=== PATIENT | female | born 1970 | race Caucasian/White ===

== ENCOUNTER 2025-08-11 13:50 | Outpatient (REF) | payer MEDICARE, MEDICAID, SELFPAY ==
[2025-08-11 15:49] LABS: MANUAL DIFF FLAG NO
[2025-08-11 16:28] LABS: Hematocrit 44.9 % (37.0-47.0); Hemoglobin 15.2 g/dl (12.0-16.0); Imm Gran Abs Auto 0.03 X10*3/uL (0.00-0.03); Imm Gran Pct Auto 0.4 % (0.0-0.4); Lymphocytes Absolute Auto 2.3 X10*3/uL (1.2-4.9); Mean Corpuscular HGB Conc 33.9 g/dl (31.0-35.0); Mean Corpuscular Hemoglobin 30.8 pg (27.0-33.0); Mean Corpuscular Volume 90.9 fL (80.0-98.0); NRBC Abs Auto 0.000 X10*3/uL (0.0-0.012); NRBC Pct Auto 0.0 /100WBC (0.0-0.2); Platelet Count 232 X10*3/uL (160-400); Red Blood Count 4.94 X10*6/uL (4.20-5.50); White Blood Count 8.2 X10*3/uL (4.8-10.8)
[2025-08-11 18:06] LABS: Alanine Aminotransferase 63 U/L (0-31); Albumin Level 4.9 g/dL (3.5-5.0); Alkaline Phosphatase 78 U/L (39-117); Anion Gap 12 (12-20); Aspartate Amino Transferase 47 U/L (5-31); Blood Urea Nitrogen 17 mg/dL (9-16); Calcium 9.9 mg/dL (8.4-10.2); Carbon Dioxide 27 mmol/L (22-29); Chloride 107 mmol/L (96-108); Cholesterol 305 mg/dL (<200); Estimated Glomerular Filt Rate 55; HDL Cholesterol 69 mg/dL (>40); Potassium 4.7 mmol/L (3.3-5.1); Sodium 141 mmol/L (135-145); Total Protein 7.5 g/dL (6.5-8.0); Triglycerides 118 mg/dL (<150)
[2025-08-11 18:14] LABS: Vitamin B12 438 pg/mL (200-900)
== END 2025-08-11 13:51 | disposition home or self-care (01) ==
LOC: HO.LAB 13:50
PROVIDERS: PCP Internal Medicine; Visit Provider Internal Medicine
DX: Z00.00 Encounter for general adult medical examination without abnormal findings (principal); Z01.419 Encounter for gynecological examination (general) (routine) without abnormal findings; G61.81 Chronic inflammatory demyelinating polyneuritis; F41.1 Generalized anxiety disorder; Z13.6 Encounter for screening for cardiovascular disorders
CPT/HCPCS: 36415; 80053; 80061; 82306; 82607; 84443; 85025

== ENCOUNTER 2025-08-11 13:50 | Outpatient (AMB) | payer MEDICARE, MEDICAID, SELFPAY ==
--- NOTE | 2025-08-11 13:51 | MHC.PC.OV ---
Vital Signs 08/11/25 13:55 Height 5 ft 6 in Weight 149 lb 4 oz BMI 24.1 BP 120/84 Blood Pressure Location Lt brachial Position Sitting Respiration 16 Pulse 91 Pulse Source Pulse Oximeter Temp 97.1 F Temp Source Temporal Artery Scan Pulse Oximetry (%) 97 Oxygen Delivery Method Room Air Intake Visit Reasons: Annual PE - see comments Wire Bender Required: No Accompanied by: Self / Same As Patient Allergies No Known Allergies Allergy (Verified 08/11/25 13:58) Medication List - Last Reconciled 08/11/25 by Yuridia Ulrich MD bupropion HCl 75 mg PO DAILY clonazepam 2 - 3 mg PO DAILY PRN cyclobenzaprine 5 mg PO BEDTIME PRN escitalopram oxalate 5 mg PO QAM PRN naltrexone mg PO DAILY ubrogepant (Ubrelvy) mg PO PRN Tobacco use date assessed: 08/11/25 Dental Screening Dental Screen Date: 08/11/25 Did you have a dental visit in the last 12 months?: No Did you have a dental problem in the last 6 months where you did not have access to dental care?: No Was dental information given to patient?: Patient has dentist [facility] Medical History (Updated 08/11/25 @ 15:06 by uYridia Ulrich MD) Routine gynecological examination Routine medical exam Hydrosalpinx CIDP (chronic inflammatory demyelinating polyneuropathy) Generalized anxiety disorder Surgical History (Updated 08/11/25 @ 13:07 by Yuridia Ulrich MD) H/O shoulder surgery Social History Housing: Apartment Patient Tobacco Use Status: Former Tobacco user Years Smoked: 15 years e-Cigarette/Vaping Use: Never Used service: No Current occupational status: disabled Questionnaire PHQ-9 Over the last 2 weeks, how often have you been bothered by any of the following problems? 1. Little interest or pleasure in doing things: not at all 2. Feeling down, depressed, or hopeless: not at all 3. Trouble falling or staying asleep, or sleeping too much: not at all 4. Feeling tired or having little energy: not at all 5. Poor appetite or overeating: not at all 6. Feeling bad about yourself - or that you are a failure or have let yourself or your family down: not at all 7. Trouble concentrating on things, such as reading the newspaper or watching television: not at all 8. Moving or speaking so slowly that other people could have noticed. Or the opposite - being so fidgety or restless that you have been moving around a lot more than usual: not at all 9. Thoughts that you would be better off or of hurting yourself in some way: not at all Total score: 0 Depression Screening Interpretation: Negative Depression Screening Done: Yes 11901 - PHQ-9 Billing: Yes Source: Developed by Drs. Babar Tai, Stephanie Avelar, Maulik Ordaz and colleagues, with an educational adelaide from [employer]. Thrive Questionnaire Date Thrive assessed: 08/11/25 I am a: Patient What is your living situation today?: I have a steady place to live Within the past 12 months, did the food you bought not last and you didn't have the money to get more?: Never true Within the past 12 months, did you worry whether your food would run out before you got money to buy more?: Never true Do you have trouble paying for medicines?: No Do you have trouble getting transportation to medical appointments?: No Do you have trouble paying your heating and electricity bill?: No Do you have trouble taking care of your child, family member or friend?: No Do you have trouble with day-to-day activities such as bathing, preparing meals, shopping, managing finances, etc.?: No Are you currently unemployed and looking for a job?: No Are you interested in more education?: No Please select the resources that you would like help with: None THRIVE Score: 0 AUDIT C Alcohol Use Questionnaire (AUDIT-C) 1. How often do you have a drink containing alcohol?: Never 3. How often do you have six or more drinks on one occasion?: Never Total Score: 0 KEILA-7 AMB Questionnaire KEILA-7 Date KEILA - 7 assessed: 08/11/25 Feeling nervous, anxious, or on edge: 0 = Not at all Not being able to stop or control worryin = Not at all Worrying too much about different things: 0 = Not at all Trouble relaxin = Not at all Being so restless that it is hard to sit still: 0 = Not at all Becoming easily annoyed or irritable: 0 = Not at all Feeling afraid as if something awful might happen: 0 = Not at all Total KEILA-7 score (0-4 normal; 5-9 mild; 10-14 moderate; 15-21 severe): 0 Source: Developed by Drs. Babar Tai, Stephanie Avelar, Maulik Ordaz and colleagues, with an educational adelaide from [employer]. Physical exam (Primary Care) Vital Signs: Last Vital Signs Temp 97.1 F 08/11/25 13:55 Pulse 91 08/11/25 13:55 Resp 16 08/11/25 13:55 BP 120/84 08/11/25 13:55 Pulse Ox 97 08/11/25 13:55 Oxygen Delivery Method Room Air 08/11/25 13:55 BMI result Body Mass Index 24.1 Tobacco/Smoking Status: Tobacco use Status Tobacco use date assessed 08/11/25 08/11/25 13:54 Patient Tobacco Use Status Former Tobacco user 08/11/25 14:06 e-Cigarette/Vaping Use Never Used 08/11/25 14:06 PHQ-9: PHQ-9 Score PHQ-9: Total score 0 08/11/25 14:09 Depression Screening Interpretation: Negative Thrive Assessment: Date of Thrive Assessment Date Thrive assessed 08/11/25 08/11/25 14:09 Coding Additional Codes PHQ-9 - 89470 - PHQ-9 Billing: Yes ([id number]) Assessment & Plan Assessment & Plan Orders: Orders Vitamin D 25-OH Total Today G61.81 - Chronic inflammatory demyelinating polyneuritis, Z00.00 - Encounter for general adult medical examination without abnormal findings Vitamin B12 Today G61.81 - Chronic inflammatory demyelinating polyneuritis, Z00.00 - Encounter for general adult medical examination without abnormal findings Lipid Panel Today G61.81 - Chronic inflammatory demyelinating polyneuritis, Z00.00 - Encounter for general adult medical examination without abnormal findings Comprehensive Met. Panel Today G61.81 - Chronic inflammatory demyelinating polyneuritis, Z00.00 - Encounter for general adult medical examination without abnormal findings Complete Blood Count Auto Diff Today G61.81 - Chronic inflammatory demyelinating polyneuritis, Z00.00 - Encounter for general adult medical examination without abnormal findings TSH reflex Free T4 Today G61.81 - Chronic inflammatory demyelinating polyneuritis, Z00.00 - Encounter for general adult medical examination without abnormal findings Referrals APARTMENT PROPERTY MANAGER Referral Z01.419 - Encounter for gynecological examination (general) (routine) without abnormal findings
[2025-08-11 13:55] VITALS: BP 120/84; PULSE 91; RESP 16; TEMP 36.2; O2SAT 97; BMI 24.1
--- NOTE | 2025-08-11 15:15 | A.OFFVIS_ITS ---
Intake Vital Signs 08/11/25 13:55 Height 5 ft 6 in Weight 149 lb 4 oz BMI 24.1 BP 120/84 Blood Pressure Location Lt brachial Position Sitting Respiration 16 Pulse 91 Pulse Source Pulse Oximeter Temp 97.1 F Temp Source Temporal Artery Scan Pulse Oximetry (%) 97 Oxygen Delivery Method Room Air Intake Visit Reasons: Annual PE - see comments, medicare wellness visit Allergies No Known Allergies Allergy (Verified 08/11/25 13:58) Medication List - Last Reconciled 08/11/25 by Yuridia Ulrich MD bupropion HCl 75 mg PO DAILY clonazepam 2 - 3 mg PO DAILY PRN cyclobenzaprine 5 mg PO BEDTIME PRN escitalopram oxalate 5 mg PO QAM PRN naltrexone mg PO DAILY ubrogepant (Ubrelvy) mg PO PRN Fall Risk Assessment Fall risk assessment: No Falls in past year Date Fall Risk Assessed: 08/11/25 HPI HPI Comments History of Present Illness Details The patient is a 54 year old female presenting to [facility] and for a medicare wellness visit. Health Risk Assessment completed. No cognitive deficits, no opioid use. Migraine: The patient reports a history of migraines, and in September of this year, she experienced massive headaches with pain behind her eye that radiated to the back of her head. These headaches were disabling, with one episode lasting for a week, prompting her to see a headache specialist at [facility] who diagnosed them as migraines. She was initially treated with Imitrex, which was effective, but later she experienced breakthrough headaches. She now uses Ubrelvy as needed, which she reports is effective for her moderate headaches. Anxiety: The patient has a history of anxiety and reports taking escitalopram once during the COVID-19 pandemic, which was effective. She has a prescription for it but does not take it daily. She also uses Klonopin sparingly. Depression: The patient has been taking Wellbutrin for decades for depression. She is currently tapering the medication and has reduced the dose from 100 mg to 75 mg. A previous attempt to discontinue the 100 mg dose, even when done slowly, resulted in withdrawal effects. Right shoulder pain: The patient is currently in physical therapy at [facility] in [place] for an issue with her right shoulder. Polyneuropathy: The patient has a history of polyneuropathy, for which she has seen Dr. Rivera, a neurologist, for years. She previously received IVIG infusions once a week but stopped, and she has not had nerve pain since discontinuing the treatment. She has been taking low-dose naltrexone (LDN) and reports it has helped her symptoms, including the resolution of brain fog. Health Maintenance: She reports being overdue for a mammogram, which she declines to have at this time. Pt will schedule appointment to see gynecology. Will also obtain records to verify date of last colonoscopy. [facility] Medical History (Updated 08/12/25 @ 13:04 by Yuridia Ulrich MD) Mixed hyperlipidemia Transaminitis Routine gynecological examination Routine medical exam Hydrosalpinx CIDP (chronic inflammatory demyelinating polyneuropathy) Generalized anxiety disorder Surgical History (Updated 08/11/25 @ 13:07 by Yuridia Ulrich MD) H/O shoulder surgery Questionnaire Medicare Wellness Checkup What gender do you identify with?: female During the past 4 weeks, how much have you been bothered by emotional problems such as feeling anxious, depressed, irritable, sad or downhearted, and blue?: not at all During the past 4 weeks, has your physical & emotional health limited your social activities with family, friends, neighbors, or groups?: not at all During the past 4 weeks, how much bodily pain have you generally had?: moderate pain During the past 4 weeks, was someone available to help you if you needed & wanted help?: yes, as much as I wanted During the past 4 weeks, what was the hardest physical activity you could do for at least 2 minutes?: light Can you get to places out of walking distance without help? (For eg., can you travel alone on buses, taxis or drive your car?): Yes Can you go shopping for groceries or clothes without someone's help?: Yes Can you prepare your own meals?: Yes Can you do your housework without help?: Yes Because of any health problems, do you need the help of another person with your personal care needs such as eating, bathing, dressing or getting around the house?: No Can you handle your own money without help?: Yes During the past 4 weeks, how would you rate your health in general?: excellent During the past 4 weeks how have things been going for you?: very well; could hardly better Are you having difficulties driving your car?: yes, often Do you always fasten your seat belt when you are in a car?: yes, usually During past 4 weeks, have you been bothered by the following: never: Falling or dizzy when standing up, Trouble eating well?, Teeth or denture problems? and Problems using the telephone? and seldom: Tiredness or fatigue? Have you fallen 2 or more times in the past year?: No Are you afraid of falling?: No Are you a smoker?: no During the past 4 weeks, how many drinks of wine, beer, or other alcoholic beverages did you have?: no alcohol at all Do you exercise for about 20 minutes 3 or more times a week?: yes, some of the time Have you been given information to help with the following?: no: Hazards in your house that might hurt you? and no: Keeping track of your medications? How often do you have trouble taking medicines the way you have been told to take them?: I always take medicine as prescribed How confident are you that you can control & manage most of your health problems?: very confident What is your race?: White Review of Systems Narrative Review of Systems - Constitutional: Reports fatigue on some days. -Neurological: per hpi - Musculoskeletal: per hpi - Psychiatric: Reports history of anxiety and depression. Physical Exam Exam Exam: Physical Exam - HEENT: External auditory canals and tympanic membranes are clear. - Oropharynx is non-erythematous. - Cardiovascular: Regular rate and rhythm. A soft murmur is audible. Carotids are clear to auscultation bilaterally with no bruits. - Pulmonary: Lungs are clear to auscultation. - Abdomen: Bowel sounds are normal. The abdomen is soft and non-tender to palpation. - Extremities: Trace pedal edema is present. - Lymphatic: No lymphadenopathy noted. Vital Signs: Last Vital Signs Temp 97.1 F 08/11/25 13:55 Pulse 91 08/11/25 13:55 Resp 16 08/11/25 13:55 BP 120/84 08/11/25 13:55 Pulse Ox 97 08/11/25 13:55 Oxygen Delivery Method Room Air 08/11/25 13:55 BMI result Body Mass Index 24.1 Assessment & Plan Assessment & Plan (1) Routine medical exam: Code(s): Z00.00 - Encounter for general adult medical examination without abnormal findings (2) CIDP (chronic inflammatory demyelinating polyneuropathy): Code(s): G61.81 - Chronic inflammatory demyelinating polyneuritis (3) Generalized anxiety disorder: Code(s): F41.1 - Generalized anxiety disorder Plan Assessment and Plan 1. Migraine - The patient's migraines, previously debilitating, are now managed with as- needed Ubrelvy. - She is advised to maintain a relationship with her headache specialist at least annually, given the intensity of her past symptoms. 2. Depression - The patient is actively tapering her long-term bupropion (Wellbutrin) and has successfully reduced the dose from 100 mg to 75 mg daily. - Will continue to monitor her mood and withdrawal symptoms. 3. Polyneuropathy - The patient is managing her polyneuropathy with low-dose naltrexone (LDN) and has discontinued IVIG treatments. - It is recommended she continue with her neurologist, Dr. Rivera 4. Health Maintenance - A full lab panel, including diabetes and cholesterol screening, will be ordered. - [facility] - The patient is declining a mammogram at this time, which is noted. 5. Right Shoulder Pain - The patient is currently undergoing physical therapy for right shoulder pain. 6. Follow-up - The patient will follow up in 6 months Plan - Order a comprehensive lab panel, including diabetes and cholesterol screening. - Send a referral to [facility] for a Pap smear - Patient declines mammogram at this time; this has been documented. - Advised the patient to continue seeing her headache specialist at least once a year. - Continue monitoring bupropion taper for depression. Patient Instructions - Please go to the lab to have your blood drawn for the ordered tests. - It is recommended that you continue to see your headache specialist once a year. - Continue your current medications as prescribed. Orders: Orders Vitamin D 25-OH Total 08/11/25 G61.81 - Chronic inflammatory demyelinating polyneuritis, Z00.00 - Encounter for general adult medical examination without abnormal findings Vitamin B12 08/11/25 G61.81 - Chronic inflammatory demyelinating polyneuritis, Z00.00 - Encounter for general adult medical examination without abnormal findings Lipid Panel 08/11/25 G61.81 - Chronic inflammatory demyelinating polyneuritis, Z00.00 - Encounter for general adult medical examination without abnormal findings Comprehensive Met. Panel 12/09/25 G61.81 - Chronic inflammatory demyelinating polyneuritis, Z00.00 - Encounter for general adult medical examination without abnormal findings Complete Blood Count Auto Diff 08/11/25 G61.81 - Chronic inflammatory demyelinating polyneuritis, Z00.00 - Encounter for general adult medical examination without abnormal findings TSH reflex Free T4 08/11/25 G61.81 - Chronic inflammatory demyelinating polyneuritis, Z00.00 - Encounter for general adult medical examination without abnormal findings Referrals BACK OFFICE MEDICAL ASSISTANT Referral Z01.419 - Encounter for gynecological examination (general) (routine) without abnormal findings Quality Reporting (2019) Fall Risk Screening ([facility] 139) Last assessed Fall Risk: 08/11/25 Fall risk assessment: No Falls in past year Coding Level of Care Code Medicare Subsequent (G0439) Diagnoses Routine medical exam Z00.00 CIDP (chronic inflammatory demyelinating polyneuropathy) G61.81 Generalized anxiety disorder F41.1 Comment add g2211 code
== END 2025-08-11 15:18 | disposition home or self-care (01) ==
PROVIDERS: PCP Internal Medicine; Visit Provider Internal Medicine
DX: Z00.00 Encounter for general adult medical examination without abnormal findings (principal); G61.81 Chronic inflammatory demyelinating polyneuritis; F41.1 Generalized anxiety disorder

== ENCOUNTER 2025-08-13 13:39 | Outpatient (REF) | payer MEDICARE, MEDICAID, SELFPAY | END 2025-08-13 13:40 | LOC: HO.HKASLDS 13:39 | PROVIDERS: PCP Internal Medicine; Visit Provider Internal Medicine | DX: E78.2 Mixed hyperlipidemia (principal); Z13.1 Encounter for screening for diabetes mellitus | CPT/HCPCS: 36415; 83036; 83695 ==